=== PATIENT | male | born 1965 | race Caucasian/White ===

== ENCOUNTER 2019-02-15 14:13 | Inpatient (IN) | payer OTHER ==
[~2019-02-15] VITALS: Ht 182.9 cm; Wt 84.8 kg
== END 2019-02-18 14:13 | disposition home or self-care (01) | DRG 728 ==
LOC: ER 14:13 → MEDJ 22:44 → SEC-K 22:44 → MEDJ 02-16 00:29
PROVIDERS: ADMIT Internal Medicine
DX: N41.0 Acute prostatitis (principal); L02.411 Cutaneous abscess of right axilla; N39.0 Urinary tract infection, site not specified; D72.828 Other elevated white blood cell count; E86.0 Dehydration; R30.0 Dysuria; E87.8 Other disorders of electrolyte and fluid balance, not elsewhere classified; B96.29 Other Escherichia coli [E. coli] as the cause of diseases classified elsewhere

== ENCOUNTER 2020-10-06 13:58 | Inpatient (IN) | payer OTHER ==
[~2020-10-06] VITALS: Ht 188 cm; Wt 83.9 kg
[2020-10-06] MEDS ORDERED: ZITHROMAX500 MG (14:10)
== END 2020-10-10 15:15 | disposition home or self-care (01) | DRG 641 ==
LOC: ER 13:58 → SEC-K 19:45 → MEDJ 19:45
PROVIDERS: ADMIT Internal Medicine; ATTEND Internal Medicine
DX: E87.1 Hypo-osmolality and hyponatremia (principal); A90 Dengue fever [classical dengue]; E86.0 Dehydration; Z20.822 Contact with and (suspected) exposure to COVID-19; K52.9 Noninfective gastroenteritis and colitis, unspecified; R50.9 Fever, unspecified; N40.0 Benign prostatic hyperplasia without lower urinary tract symptoms; D69.6 Thrombocytopenia, unspecified

== ENCOUNTER 2020-11-11 07:35 | Outpatient (CLI) | payer OTHER ==
[~2020-11-11 07:35] MED LIST: ZITHROMAX500 MG
== END 2020-11-11 07:45 | disposition home or self-care (01) ==
LOC: SONOGRAMA 07:35
PROVIDERS: ATTEND General Practice
DX: R10.84 Generalized abdominal pain (principal); K80.80 Other cholelithiasis without obstruction

== ENCOUNTER 2022-09-02 07:10 | Day surgery (SDC) | payer OTHER | END 2022-09-02 11:15 | disposition home or self-care (01) | LOC: AMB-ENDOS 07:10 | PROVIDERS: ATTEND Surgery | DX: D12.7 Benign neoplasm of rectosigmoid junction (principal); D12.5 Benign neoplasm of sigmoid colon; K57.90 Diverticulosis of intestine, part unspecified, without perforation or abscess without bleeding; Z88.1 Allergy status to other antibiotic agents; Z20.822 Contact with and (suspected) exposure to COVID-19 ==